=== PATIENT | male | born 1975 | race Caucasian/White ===

== ENCOUNTER 2018-07-23 18:51 | Emergency (ER) | payer OTHER ==
[~2018-07-23] VITALS: Ht 180.3 cm; Wt 74.8 kg
[2018-07-23 19:39] VITALS: Ht 180.3 cm; Wt 74.8 kg
[2018-07-23 21:03] VITALS: BP 124/74
== END 2018-07-23 21:03 | disposition home or self-care (01) ==
LOC: ED 18:51
DX: Z29.8 Encounter for other specified prophylactic measures (principal)